=== PATIENT | female | born 1960 | race Caucasian/White ===

== ENCOUNTER 2023-09-22 12:06 | Emergency (ER) | payer MEDICARE ==
[2023-09-22] VITALS (7 sets, daily range): BP systolic 114–144; BP diastolic 70–86
[~2023-09-22] VITALS: Ht 172.7 cm; Wt 89.4 kg
[~2023-09-22 12:06] MED LIST: ALPRAZOLAM0.5 MG PO; AMOXICILLIN/CL875 MG PO; CARAFATE1 GM PO; CENTRUM SILVER PO; DIFLUCAN100 MG PO; FISH OIL1000 MG PO; FLONASE NASAL50 MCG; LIPITOR10 MG PO; LORTAB 7.5 PO; OMEPRAZOLE20 M1 PO; PERCOCET 5/325M1 TAB PO; PHENERGAN25 MG/TAB PO; PREDNISONE10 MG PO; PREMARIN0.3 MG PO
[2023-09-22] MEDS ORDERED: ACETAMINOPHEN 500 MG TAB PO ONE (12:55)
[2023-09-22 13:08] LABS: URINE BLOOD DIPSTICK Moderate (NEGATIVE); URINE GLUCOSE - DIPSTICK Negative (NEGATIVE); URINE KETONE 40 mg/dL (NEGATIVE); URINE LEUK ESTERASE Negative (NEGATIVE); URINE NITRITE - DIPSTICK Negative (Negative); URINE PH 5.5 (4.5-8.0); URINE PROTEIN - DIPSTICK 30 mg/dL (NEG-TRACE); URINE SPECIFIC GRAVITY 1.025
[2023-09-22 13:09] LABS: URINE COLOR Yellow
[2023-09-22 13:10] LABS: URINE EPITHELIAL CELLS MODERATE EPI/hpf (0-FEW)
[2023-09-22 13:55] LABS: BASO% 0.5 % (0-3); HEMATOCRIT 38.5 % (37.0-47.0); HEMOGLOBIN 12.8 g/dl (12.0-16.0); IMMATURE GRANULOCYTES 0.5 % (0.0-5.0); LYMPH% 12.2 % (15-41); MEAN CORPUSCULAR HGB 32.9 pG CALC (26.0-32.0); MEAN CORPUSCULAR HGB CONC 33.2 g/dL CAL (32.0-36.0); MONO% 15.3 % (2-13); NEUT# 5.77 thou/uL (2.00-7.15); NEUT% 70.5 % (42-76); RED BLOOD COUNT 3.89 mill/uL (4.20-5.60); RED CELL DISTRI WIDTH 12.5 % (11.5-15.5)
[2023-09-22 14:11] LABS: ALBUMIN 4.1 g/dL (3.2-5.0); POTASSIUM 4.2 mmol/l (3.5-5.1); TOTAL PROTEIN 7.7 g/dL (6.3-8.2)
[2023-09-22 14:25] LABS: BILIRUBIN, TOTAL 1.4 mg/dL (0.02-1.3)
[2023-09-22] MEDS ORDERED: DOXYCYCLINE HYCLATE 100 MG/CAP PO ONE (16:00)
[2023-09-22] MEDS ORDERED: VIBRAMYCIN100 M2 PO (16:09)
== END 2023-09-22 17:00 | disposition home or self-care (01) ==
LOC: ED 12:06
PROVIDERS: Nurse Practitioner
DX: J18.9 Pneumonia, unspecified organism (principal); R10.9 Unspecified abdominal pain; R31.9 Hematuria, unspecified; Z96.611 Presence of right artificial shoulder joint; Z20.822 Contact with and (suspected) exposure to COVID-19